=== PATIENT | female | born 1955 | race Caucasian/White ===

== ENCOUNTER 2017-05-25 22:28 | Emergency (ER) | payer BC, OTHER ==
[~2017-05-25] VITALS: Ht 157.5 cm; Wt 84.8 kg
[~2017-05-25 22:28] MED LIST: BP MED; CHOLESTEROL; HUMALOG PE100 UNIT/M; IBUPROFEN 600600 M1 PO
[2017-05-26 00:02] LABS: HEMATOCRIT 40.9 % (37.0-47.0); HEMOGLOBIN 13.9 gm/dL (12.0-15.0); MCH 30.9 pg (26.0-34.0); PLATELET COUNT 186 thou/uL (150-400); RBC 4.49 mil/uL (4.20-5.00); RDW 13.2 % (10.5-14.5); WBC 12.1 thou/uL (4.0-11.0)
[2017-05-26 00:11] LABS: CALCIUM 9.5 mg/dL (8.5-10.1); CREATININE 0.9 mg/dL (0.6-1.0); POTASSIUM 4.3 mmol/L (3.5-5.1)
[2017-05-26 00:17] LABS: ALBUMIN 3.6 g/dL (3.4-5.0); TOTAL BILIRUBIN 0.4 mg/dL (<0.1-1.0); TOTAL PROTEIN 8.4 g/dL (6.4-8.2)
[2017-05-26 00:29] LABS: ABSOLUTE NEUTROPHILS 10.9 thou/uL (1.4-8.2)
[2017-05-26 00:30] LABS: LARGE PLATELETS OCCASIONAL
[2017-05-26 01:07] LABS: URINE BILIRUBIN NEGATIVE (Negative); URINE BLOOD NEGATIVE (Negative); URINE CLARITY CLEAR; URINE COLOR YELLOW; URINE GLUCOSE-RANDOM* 3+ (Negative); URINE KETONES NEGATIVE (Negative); URINE LEUKOCYTES NEGATIVE (Negative); URINE NITRITE NEGATIVE (Negative); URINE PROTEIN (DIPSTICK) NEGATIVE (Negative); URINE UROBILINOGEN 0.2 E.U./dl (0.2-1.0)
[2017-05-26] MEDS ORDERED: LANTUS SUBQ (01:44)
== END 2017-05-26 06:40 | disposition home or self-care (01) ==
LOC: ER 22:28
PROVIDERS: Nurse Practitioner Family
DX: M25.562 Pain in left knee (principal); M25.561 Pain in right knee; R50.9 Fever, unspecified; E11.9 Type 2 diabetes mellitus without complications; I10 Essential (primary) hypertension; E78.00 Pure hypercholesterolemia, unspecified; Z90.710 Acquired absence of both cervix and uterus; Z79.4 Long term (current) use of insulin